=== PATIENT | male | born 1980 | race Caucasian/White ===

== ENCOUNTER 2023-05-12 10:35 | Day surgery (SDC) | payer SELFPAY ==
[2023-05-11 10:03] VITALS: BMI 28.5
[2023-05-12] MEDS ORDERED: Midazolam HCl 2 mg/2 ml Vial ONE (11:39)
[2023-05-12] MEDS ORDERED: fentaNYL 50 mcg/mL 1 mL Vial ONE ×2 (11:39→13:03)
[2023-05-12] MEDS ORDERED: Ropivacaine 0.5% HCl/PF (150 MG/30 ML VIAL) ONE (11:39)
[2023-05-12] MEDS ORDERED: Dexmedetomidine 200 MCG/2 ML VIAL ONE (12:17)
[2023-05-12] MEDS ORDERED: fentaNYL PF 100 MCG/2 ML SYRINGE ONE (12:17)
[2023-05-12] MEDS ORDERED: CEFAZOLIN 2 GM VIAL ONE (12:29)
[2023-05-12] MEDS ORDERED: Sodium Chloride 0.9% 100 ML ONE (12:29)
[2023-05-12] MEDS ORDERED: Ondansetron PF 4 MG/2 ML Vial ONE (12:55)
[2023-05-12] MEDS ORDERED: Dexamethasone 20 MG/5 ML VIAL ONE (12:55)
[2023-05-12] MEDS ORDERED: PROPOFOL 200 MG/20 ML VIAL ONE (12:55)
== END 2023-05-12 15:30 | disposition home or self-care (01) ==
LOC: SDC 10:35
PROVIDERS: ATTEND Orthopaedic Surgery
PROC: 0QSK04Z Reposition Left Fibula with Internal Fixation Device, Open Approach (ICD-10-PCS; principal; 2023-05-12)
PROC: 0SSG0ZZ Reposition Left Ankle Joint, Open Approach (ICD-10-PCS; principal; 2023-05-12)
DX: S82.62XA Displaced fracture of lateral malleolus of left fibula, initial encounter for closed fracture (principal); S93.432A Sprain of tibiofibular ligament of left ankle, initial encounter; Y04.8XXA Assault by other bodily force, initial encounter; Y93.72 Activity, wrestling
CPT/HCPCS: C1713; C1776; C1874; J1100; J2250; J2405; J2704; J2795; J3010; J3490